=== PATIENT | male | born 1995 | race American Indian/Alaskan Native ===

== ENCOUNTER 2017-10-06 17:09 | Emergency (ER) | payer SELFPAY ==
[2017-10-06 17:34] VITALS: BP 112/64
[2017-10-06] MEDS ORDERED: MOTRIN PO ONE (18:06)
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
[2017-10-06] MEDS ORDERED: BOOSTRIX IM ONE (20:50)
== END 2017-10-06 21:00 | disposition home or self-care (01) ==
LOC: ED 17:09
DX: S01.01XA Laceration without foreign body of scalp, initial encounter (principal); Y00.XXXA Assault by blunt object, initial encounter; Y93.89 Activity, other specified; Y92.410 Unspecified street and highway as the place of occurrence of the external cause; Y99.8 Other external cause status
CPT/HCPCS: 70450; 90471; 99283

== ENCOUNTER 2017-10-13 15:11 | Emergency (ER) | payer SELFPAY ==
[2017-10-13 15:20] VITALS: BP 129/63
--- NOTE | 2017-10-13 16:50 | Emergency Department Report ---
Suture/Staple Removal - [facility] Chief Complaint: Laceration/Recheck/Suture Stated Complaint: GENESIS REMOVAL Time Seen by Provider: 10/13/17 16:47 When Sutures or Diggs Placed: 5-7 Days Ago Wound Location: frontal scalp ED Review of Systems ROS: Stated complaint: GENESIS REMOVAL Other details as noted in HPI Constitutional: denies: chills, fever Eyes: denies: eye pain, eye discharge, vision change ENT: denies: ear pain, throat pain Respiratory: denies: cough, shortness of breath, wheezing Cardiovascular: denies: chest pain, palpitations Endocrine: no symptoms reported Gastrointestinal: denies: abdominal pain, nausea, diarrhea Genitourinary: denies: urgency, dysuria Musculoskeletal: denies: back pain, joint swelling, arthralgia Skin: denies: rash, lesions Neurological: denies: headache, weakness, paresthesias Psychiatric: denies: anxiety, depression Hematological/Lymphatic: denies: easy bleeding, easy bruising ED Past Medical Hx - Past Medical History Previous Medical History?: Yes Additional medical history: Eczema - Surgical History Past Surgical History?: Yes Additional Surgical History: L arm surgery - Social History Smoking Status: Never Smoker Substance Use Type: None - Medications Home Medications: Home Medications Medication Instructions Recorded Confirmed Last Taken Type Sulfamethoxazole/Trimethoprim 1 each PO BID #14 tablet 10/06/17 Unknown Rx [Bactrim DS TAB] Suture Removal Exam - Exam General: Vital signs noted. No distress. Alert and acting appropriately. Wound: No Pathologic Erythema, No Tenderness, No Drainage, No Pus, No Wound Dehiscence Other Systems: All other systems reviewed and are unremarkable. ED Course Vital Signs 10/13/17 15:16 Temperature 98.9 F Pulse Rate 98 H Respiratory 16 Rate Blood Pressure 129/63 O2 Sat by Pulse 96 Oximetry - Reevaluation(s) Reevaluation #1: 10/13/17 16:51 Patient is speaking in full sentences with no signs of distress noted. ED Recheck MDM - Medical Decision Making 22-year-old male that presents with staple removal. Total of 3 genesis removed. Patient tolerated well. Well healing. Patinet stated finished course of antibiotics. PAtient was instructed to Follow-up with a primary care doctor in 3-5 days or if symptoms worsen and continue return to emergency room as soon as possible. At time of discharge, the patient does not seem toxic or ill in appearance. No acute signs of distress noted. Patient agrees to discharge treatment plan of care. No further questions noted by the patient. Critical care attestation.: If time is entered above; I have spent that time in minutes in the direct care of this critically ill patient, excluding procedure time. ED Disposition Clinical Impression: Removal of staple Disposition: DC-01 TO HOME OR SELFCARE Is pt being admited?: No Does the pt Need Aspirin: No Condition: Stable Additional Instructions: Follow-up with a primary care doctor in 3-5 days or if symptoms worsen and continue return to emergency room as soon as possible. Referrals: PRIMARY [facility] [Referring] - 3-5 Days LARRY REINA MD [Staff Physician] - 3-5 Days [facility] [Outside] - 3-5 Days [facility] [Outside] - 3-5 Days Forms: Work/School Release Form(ED)
== END 2017-10-13 17:09 | disposition home or self-care (01) ==
LOC: ED 15:11
DX: S01.01XD Laceration without foreign body of scalp, subsequent encounter (principal); X58.XXXD Exposure to other specified factors, subsequent encounter